=== PATIENT | female | born 1960 | race Caucasian/White ===

== ENCOUNTER 2024-04-17 05:42 | Day surgery (SDC) | payer BC ==
[2024-04-11 14:41] VITALS: BMI 24.7
[2024-04-17 07:03] LABS: #Basophils 0.04 10x3/uL (0.0-0.2); #Eosinophils 0.26 10x3/uL (0.0-0.5); #Monocytes 0.44 10x3/uL (0.0-1.1); #Neutrophils 3.57 10x3/uL (1.5-8.4); %Basophils 0.7 % (0.0-2.0); %Eosinophils 4.5 % (0.0-6.0); %Lymphocytes 24.8 % (18.0-47.0); %Monocytes 7.6 % (0.0-10.0); %Neutrophils 62.1 % (40.0-75.0); Hematocrit 36.6 % (34.9-44.5); Hemoglobin 12.5 g/dL (12.0-15.5); Mean Corpuscular HGB CONC 34.2 g/dL (32.0-36.0); Mean Corpuscular Volume 93.6 fL (81.6-98.3); Mean Platelet Volume 9.4 fL (7.4-10.4); Platelet Count 169 10x3/uL (150-450); RBC Distribution Width 11.8 % (11.5-14.5); Red Blood Cell (RBC) Count 3.91 10x6/uL (3.90-5.03); White Blood Cell (WBC) Count 5.8 10x3/uL (3.5-10.5)
[2024-04-17] MEDS ORDERED: EPINEPHrine 1 MG/ML VIAL ONE ×3 (07:04→09:22)
[2024-04-17] MEDS ORDERED: Mupirocin 2% Ointment 22 GM Tube ONE (07:04)
[2024-04-17] MEDS ORDERED: Lidocaine 1% (PF) 30 ML VIAL ONE (07:04)
[2024-04-17] MEDS ORDERED: Methylene Blue 50 MG/10 ML AMPUL ONE (07:04)
[2024-04-17] MEDS ORDERED: CEFAZOLIN 2 GM VIAL ONE (07:05)
[2024-04-17 07:21] LABS: Anion Gap 15 mmol/L (10-20); BUN (Urea Nitrogen) 17 mg/dL (9.8-20.1); Calc. Creatinine Clearance 67 mL/min (70-130); Calcium 9.1 mg/dL (7.8-10.44); Carbon Dioxide 18 mmol/L (23-31); Chloride 112 mmol/L (98-107); Estimated GFR 81; Glucose 96 mg/dL (80-115); Sodium 141 mmol/L (136-145)
[2024-04-17] MEDS ORDERED: Rocuronium Bromide 10 MG/ML (10ML VIAL) ONE (08:03)
[2024-04-17] MEDS ORDERED: Lidocaine 1% PF 5 ML VIAL ONE (08:03)
[2024-04-17] MEDS ORDERED: Fentanyl 250 MCG/5 ML VIAL ONE (08:03)
[2024-04-17] MEDS ORDERED: Dexamethasone 20 MG/5 ML VIAL ONE (08:03)
[2024-04-17] MEDS ORDERED: PROPOFOL 20 ML ONE (08:03)
[2024-04-17] MEDS ORDERED: Ondansetron PF 4 MG/2 ML Vial ONE (08:03)
[2024-04-17] MEDS ORDERED: Midazolam HCl 2 mg/2 ml Vial ONE (08:03)
[2024-04-17] MEDS ORDERED: Glycopyrrolate 0.2 MG/ML 5 ML SYRINGE ONE (08:37)
[2024-04-17] MEDS ORDERED: PHENYLEPHRINE-NS 100 MCG/ML 10 ML SYRINGE ONE (08:41)
[2024-04-17] MEDS ORDERED: fentaNYL 50 mcg/mL 1 mL Vial ONE (11:51)
[2024-04-17] MEDS ORDERED: oFLOXacin 0.3% Opth 5 ML BOT ONE (11:52)
[2024-04-17] MEDS ORDERED: HYDROcodone/Acetaminophen 5/325 mg Tablet ONE (12:36)
== END 2024-04-17 13:00 | disposition home or self-care (01) ==
LOC: CSHSDC 05:42
PROVIDERS: ATTEND Otolaryngology Plastic Surgery within the Head & Neck
PROC: F0BZ09Z Cochlear Implant Rehabilitation Treatment using Cochlear Implant Equipment (ICD-10-PCS; principal; 2024-04-17)
DX: H90.3 Sensorineural hearing loss, bilateral (principal); G43.909 Migraine, unspecified, not intractable, without status migrainosus; F32.A Depression, unspecified; E78.00 Pure hypercholesterolemia, unspecified; Z79.899 Other long term (current) drug therapy; Z98.890 Other specified postprocedural states
CPT/HCPCS: 36415; 70250; 80048; 85025; C1713; J0171; J1100; J2250; J2405; J2704; J3010; L8614